=== PATIENT | female | born 1970 | race Caucasian/White ===

== ENCOUNTER 2019-07-07 19:03 | Emergency (ER) | payer MEDICARE ==
[~2019-07-07] VITALS: Ht 167.6 cm; Wt 60.6 kg
[2019-07-07 19:05] VITALS: BP 137/90
--- NOTE | 2019-07-07 19:31 | PHYS DOC ---
Adult General Chief Complaint Chief Complaint: OTHER COMPLAINTS.." I am infected with worms..they are in my stool... and now they even seemed to be coming out my skin.. I went to [facility].. and they said I was crazy..." HPI HPI Patient is a 48 year old female who presents with above hx and complaints worms in her stools. Patient also concerned about skin lesions that may be warm crawling out of her skin. No recent travel. No specific ill contacts. Patient states her boyfriend also has worms in his stool. Pt. Has started a course of pinworm treatment. Pt. states she is still seeing worms in her stools. Patient denies any history of immunosuppression. Review of Systems Review of Systems Constitutional: Denies fever or chills [] Eyes: Denies change in visual acuity, redness, or eye pain [] HENT: Denies nasal congestion or sore throat [] Respiratory: Denies cough or shortness of breath [] Cardiovascular: No additional information not addressed in HPI [] GI: Denies abdominal pain, nausea, vomiting, bloody stools or diarrhea [] Complaints of worms in stool. : Denies dysuria or hematuria [] Musculoskeletal: Denies back pain or joint pain [] Integument: Denies rash or skin lesions [] Neurologic: Denies headache, focal weakness or sensory changes [] Endocrine: Denies polyuria or polydipsia [] All other systems were reviewed and found to be within normal limits, except as documented in this note. Family History Family History Noncontributory Current Medications Current Medications See nursing for home meds Allergies Allergies No known drug allergies Physical Exam Physical Exam Constitutional: , no acute distress, non-toxic appearance. [] HENT: Normocephalic, atraumatic, bilateral external ears normal, oropharynx moist, no oral exudates, nose normal. [] Eyes: PERRLA, EOMI, conjunctiva normal, no discharge. [] Neck: Normal range of motion, no tenderness, supple, no stridor. [] Cardiovascular:Heart rate regular rhythm, no murmur [] Lungs & Thorax: Bilateral breath sounds with apex with scattered wheezes auscultation [] Abdomen: Bowel sounds normal, soft, no tenderness, no masses, no pulsatile masses. [] Skin: Warm, dry, no erythema, no rash. [] Back: No tenderness, no CVA tenderness. [] Extremities: No tenderness, no cyanosis, no clubbing, ROM intact, no edema. [] Neurologic: Alert and oriented X 3, normal motor function, normal sensory function, no focal deficits noted. [] Psychologic: Affect anxious ,judgement normal, mood normal. [] EKG EKG [] Radiology/Procedures Radiology/Procedures [] Course & Med Decision Making Course & Med Decision Making Pertinent Labs and Imaging studies reviewed. (See chart for details) Patient to supply a stool sample. Patient take Albendazole 400 mg daily for 3 days. Patient follow-up primary care. Follow-up O & P and stool evaluation. 1. Complaints of worms in stool. [] Dragon Disclaimer Dragon Disclaimer This electronic medical record was generated, in whole or in part, using a voice recognition dictation system. Departure Departure: Disposition: 01 HOME/RESIDENCE PRIOR TO ADM Condition: STABLE Referrals: LUIS A MCINTOSH MD (PCP) Scripts Albendazole (ALBENZA) 200 Mg Tablet 400 MG PO DAILY for worms for 3 Days, #6 TAB Prov: AMBROCIO JOSEPH MD 07/07/19 Jevon Disclaimer This chart was dictated in whole or in part using Voice Recognition software in a busy, high-work load, and often noisy Emergency Department environment. It may contain unintended and wholly unrecognized errors or omissions. Dragon Disclaimer This chart was dictated in whole or in part using Voice Recognition software in a busy, high-work load, and often noisy Emergency Department environment. It may contain unintended and wholly unrecognized errors or omissions. AMBROCIO JOSEPH MD Jul 07, 2019 19:31
[2019-07-07] MEDS ORDERED: ALBE200T2 PO (20:24)
[2019-07-07 20:44] LABS: AMPHETAMINE/METHAMPHETAMINE NEG (NEG); BARBITURATES NEG (NEG); BENZODIAZEPINES NEG (NEG); CANNABINOIDS NEG (NEG); COCAINE NEG (NEG); METHADONE NEG (NEG); OPIATES NEG (NEG); PHENCYCLIDINE NEG (NEG)
[2019-07-07 21:22] LABS: BACTERIA,URINE 0 /HPF (0-FEW); BILIRUBIN,URINE NEG (NEG); CLARITY,URINE CLEAR; COLOR,URINE YELLOW; GLUCOSE,URINE NEG (NEG); NITRITE,URINE NEG (NEG); SQUAMOUS EPITHELIAL CELL,UR OCC /LPF; UROBILINOGEN,URINE 0.2 mg/dL (0.2 mg/dL)
== END 2019-07-07 20:30 | disposition home or self-care (01) ==
LOC: ER 19:03
DX: B82.9 Intestinal parasitism, unspecified (principal); L98.8 Other specified disorders of the skin and subcutaneous tissue
CPT/HCPCS: 36415; 80307; 81001; 81025; 87086; 99284

== ENCOUNTER → 2021-06-07 | Outpatient (CLI) | payer MEDICARE ==
[~2021-06-07] MED LIST: ALBE200T13 PO
--- NOTE | 2021-06-07 12:36 | RAD ---
EXAM: XR SHOULDER_RIGHT 2+ VIEWS, XR CERVICAL SPINE 2-3V 06/07/2021 6:48 AM CLINICAL INDICATION: Muscle tension, pain, cervicalgia. Right shoulder pain. COMPARISON: CT cervical spine 01/29/2013. TECHNIQUE: AP, swimmer's, lateral, and odontoid views of the cervical spine. AP internal and externa l rotation, scapular Y view the right shoulder. FINDINGS: Cervical spine: There are surgical changes of ACDF at C3-C5 with an anterior plate and screws and int erbody grafts. Hardware is intact. There is osseous fusion across the disc space at C5-C6. There is 3 mm retrolisthesis of C3 on C4. Straightening of lordosis. No acute fracture. There is suspected is m oderate disc space narrowing at C6-C7,. Small anterior osteophytes. Prevertebral soft tissues normal. The dens is intact. IMPRESSION: 1. Surgical changes of ACDF at C3-C5 and osseous fusion across the disc space at C5-C6. 2. Moderate degenerative disc disease at C6-C7. Electronically signed by: Muna Garner MD (06/07/2021 12:34 PM) [id number]
== END ==
LOC: RAD 06:13
PROVIDERS: ATTEND Nurse Practitioner Primary Care
DX: M50.323 Other cervical disc degeneration at C6-C7 level (principal); M53.82 Other specified dorsopathies, cervical region; M48.02 Spinal stenosis, cervical region; M25.78 Osteophyte, vertebrae; M79.10 Myalgia, unspecified site; M40.292 Other kyphosis, cervical region; Z98.1 Arthrodesis status
CPT/HCPCS: 72040

== ENCOUNTER → 2021-06-07 | Outpatient (CLI) | payer MEDICARE ==
--- NOTE | 2021-06-07 12:36 | RAD ---
EXAM: XR SHOULDER_RIGHT 2+ VIEWS, XR CERVICAL SPINE 2-3V 06/07/2021 6:48 AM CLINICAL INDICATION: Muscle tension, pain, cervicalgia. Right shoulder pain. COMPARISON: CT cervical spine 01/29/2013. TECHNIQUE: AP, swimmer's, lateral, and odontoid views of the cervical spine. AP internal and externa l rotation, scapular Y view the right shoulder. FINDINGS: Cervical spine: There are surgical changes of ACDF at C3-C5 with an anterior plate and screws and int erbody grafts. Hardware is intact. There is osseous fusion across the disc space at C5-C6. There is 3 mm retrolisthesis of C3 on C4. Straightening of lordosis. No acute fracture. There is suspected is m oderate disc space narrowing at C6-C7,. Small anterior osteophytes. Prevertebral soft tissues normal. The dens is intact. IMPRESSION: 1. Surgical changes of ACDF at C3-C5 and osseous fusion across the disc space at C5-C6. 2. Moderate degenerative disc disease at C6-C7. Electronically signed by: Muna Garner MD (06/07/2021 12:34 PM) [id number]
== END ==
LOC: RAD 05:59
PROVIDERS: ATTEND Nurse Practitioner Primary Care
DX: M50.323 Other cervical disc degeneration at C6-C7 level (principal); M53.82 Other specified dorsopathies, cervical region; M48.02 Spinal stenosis, cervical region; M43.12 Spondylolisthesis, cervical region; M25.78 Osteophyte, vertebrae; Z98.1 Arthrodesis status; M25.511 Pain in right shoulder
CPT/HCPCS: 72040; 73030